=== PATIENT | female | born 1935 | race Caucasian/White ===

== ENCOUNTER 2017-06-14 15:55 | Inpatient (IN) | payer OTHER ==
[2017-06-14 18:06] LABS: ADD MAN DIFF? NO
[2017-06-14 18:09] LABS: WHITE BLOOD COUNT 6.6 10^3/ul (4.8-10.8)
[2017-06-14 18:09] LABS: BASOPHILS % 0.5 % (0.0-2.0); EOSINOPHILS # 0.1 10^3/ul (0.0-0.5); EOSINOPHILS % 1.5 % (0.0-7.0); HEMATOCRIT 31.9 % (37.0-47.0); HEMOGLOBIN 11.3 g/dl (12.0-16.0); LYMPHOCYTES # 1.3 10^3/ul (0.8-2.9); LYMPHOCYTES % 19.9 % (15.0-51.0); MEAN CORPUSCULAR HEMOGLOBIN 29.7 pg (29.0-33.0); MEAN CORPUSCULAR HGB CONC 35.4 g/dl (32.0-37.0); MEAN CORPUSCULAR VOLUME 83.7 fl (82.0-101.0); MEAN PLATELET VOLUME 9.4 fl (7.4-10.4); MONOCYTE # 0.6 10^3/ul (0.3-0.9); MONOCYTES % 9.7 % (0.0-11.0); NEUTROPHIL # 4.5 10^3/ul (1.6-7.5); NEUTROPHILS % 67.9 % (39.0-77.0); PLATELET COUNT 255 10^3/UL (140-415); RED BLOOD COUNT 3.81 10^6/ul (4.20-5.40); RED CELL DISTRIBUTION WIDTH 12.6 % (11.5-14.5)
[2017-06-14 18:35] LABS: ALANINE AMINOTRANSFERASE 37 IU/L (13-69); ALBUMIN 4.3 g/dl (3.3-4.9); ALBUMIN/GLOBULIN RATIO 1.53; ALKALINE PHOSPHATASE 67 IU/L (42-121); ANION GAP 16 (8-16); BILIRUBIN,INDIRECT 0.4 mg/dl (0-1.1); BILIRUBIN,TOTAL 0.4 mg/dl (0.2-1.3); BLOOD UREA NITROGEN 20 mg/dl (7-20); CALCIUM 8.4 mg/dl (8.4-10.2); CARBON DIOXIDE 24 mmol/L (21-31); CHLORIDE 87 mmol/L (97-110); CREATININE 1.23 mg/dl (0.44-1.00); GLUCOSE 111 mg/dl (70-220); SODIUM 123 mmol/L (135-144); TOTAL PROTEIN 7.1 g/dl (6.1-8.1)
[2017-06-14 18:36] LABS: ASPARTATE AMINO TRANSFERASE 40 IU/L (15-46)
[2017-06-14 19:05] LABS: ADD UMIC YES; UR ASCORBIC ACID 20 mg/dL (NEGATIVE); UR BACTERIA MANY /HPF (NONE SEEN); UR BILIRUBIN (Dip) NEGATIVE (NEGATIVE); UR BLOOD (Dip) 1+ mg/dL (NEGATIVE); UR CALCIUM OXALATE CRYSTAL MODERATE /HPF (NONE SEEN); UR CLARITY TURBID (CLEAR); UR COLOR AMBER (YELLOW); UR GLUCOSE (Dip) NEGATIVE (NEGATIVE); UR KETONES (Dip) NEGATIVE (NEGATIVE); UR LEUKOCYTE ESTERASE (Dip) 3+ Leu/ul (NEGATIVE); UR MUCUS FEW /HPF (NONE SEEN); UR NITRITE (Dip) NEGATIVE (NEGATIVE); UR NONSQUAMOUS EPITHELIAL CELL 3 /HPF (NONE SEEN); UR RBC 6 /HPF (0-5); UR SPECIFIC GRAVITY (Dip) 1.006 (1.003-1.030); UR SQUAMOUS EPITHELIAL CELL FEW /HPF (FEW); UR TOTAL PROTEIN (Dip) 1+ mg/dl (NEGATIVE); UR UROBILINOGEN (Dip) NEGATIVE (NEGATIVE); UR WBC > 182 /HPF (0-5)
[2017-06-14] MEDS: CEFTRIAXONE 1 GM/50 ML (PMX) 50 ML IVPB (19:20)
[2017-06-14] MEDS ORDERED: ONDANSETRON 4 MG INJ IV ×2 (20:00→23:30)
[2017-06-14] MEDS ORDERED: ACETAMINOPHEN 325 MG TAB PO (20:00)
[2017-06-14] MEDS ORDERED: ONDANSETRON 4 MG TAB PO (23:30)
[2017-06-14] MEDS ORDERED: BISACODYL (EC) 5 MG TAB PO (23:30)
[2017-06-14] MEDS ORDERED: DOCUSATE SODIUM 100 MG CAP PO (23:30)
[2017-06-14] MEDS ORDERED: NACL 0.9% 3 ML SYG IV (23:30)
[2017-06-14] MEDS ORDERED: ACETAMINOPHEN 650 MG SUPP PR (23:30)
[2017-06-14] MEDS: SOD CHLORIDE 0.9% 1,000 ML IV (23:57)
[2017-06-15] MEDS: CEFTRIAXONE 2 GM/50 ML (PMX) 50 ML IVPB (06:35)
[2017-06-15] MEDS: PANTOPRAZOLE 40 MG INJ IV (06:35)
[2017-06-15 06:46] LABS: ALANINE AMINOTRANSFERASE 37 IU/L (13-69); ALBUMIN/GLOBULIN RATIO 1.48; ALKALINE PHOSPHATASE 71 IU/L (42-121); ANION GAP 11 (8-16); ASPARTATE AMINO TRANSFERASE 29 IU/L (15-46); BILIRUBIN,INDIRECT 0.3 mg/dl (0-1.1); BILIRUBIN,TOTAL 0.3 mg/dl (0.2-1.3); BLOOD UREA NITROGEN 15 mg/dl (7-20); CALCIUM 8.8 mg/dl (8.4-10.2); CARBON DIOXIDE 30 mmol/L (21-31); CHLORIDE 96 mmol/L (97-110); CREATININE 1.18 mg/dl (0.44-1.00); GLUCOSE 87 mg/dl (70-220); POTASSIUM 3.3 mmol/L (3.5-5.1); SODIUM 134 mmol/L (135-144); TOTAL PROTEIN 6.7 g/dl (6.1-8.1)
[2017-06-15 07:37] LABS: SODIUM,URINE RANDOM 46 mmol/L (30-90)
[2017-06-15] MEDS: LISINOPRIL 5 MG TAB PO (08:29)
[2017-06-15] MEDS: ATENOLOL 50 MG TAB PO (08:29)
[2017-06-15] MEDS: ENOXAPARIN 40 MG/0.4 ML SYG SC (08:32)
[2017-06-15 10:50] LABS: OSMOLALITY 274 mOsm/kg (280-295)
[2017-06-15 11:02] LABS: OSMOLALITY,URINE 166 mOsm/kg (250-1200)
[2017-06-15] MEDS: MAGNESIUM HYDROXIDE 30ML CUP PO (15:02)
[2017-06-15] MEDS: SOD CHLORIDE 0.9% 1,000 ML IV (16:46)
[2017-06-15] MEDS: POTASSIUM CHLORIDE 50 ML IVPB ×3 (17:34→22:08)
[2017-06-16] MEDS: SOD CHLORIDE 0.9% 1,000 ML IV ×2 (03:51→11:06)
[2017-06-16] MEDS: PANTOPRAZOLE 40 MG INJ IV (06:14)
[2017-06-16] MEDS: CEFTRIAXONE 2 GM/50 ML (PMX) 50 ML IVPB (06:15)
[2017-06-16] MEDS: LISINOPRIL 5 MG TAB PO (08:31)
[2017-06-16] MEDS: ATENOLOL 50 MG TAB PO (08:33)
[2017-06-16] MEDS: ENOXAPARIN 40 MG/0.4 ML SYG SC (08:34)
[2017-06-16] MEDS: MEROPENEM 1 GM/50ML(PMX) 50 ML IVPB ×2 (13:10→23:09)
[2017-06-17] MEDS: SOD CHLORIDE 0.9% 1,000 ML IV (02:35)
[2017-06-17] MEDS: PANTOPRAZOLE 40 MG INJ IV (05:47)
[2017-06-17 06:25] LABS: ALANINE AMINOTRANSFERASE 31 IU/L (13-69); ALBUMIN 4.2 g/dl (3.3-4.9); ALKALINE PHOSPHATASE 77 IU/L (42-121); ANION GAP 14 (8-16); ASPARTATE AMINO TRANSFERASE 27 IU/L (15-46); BILIRUBIN,INDIRECT 0.2 mg/dl (0-1.1); BILIRUBIN,TOTAL 0.2 mg/dl (0.2-1.3); BLOOD UREA NITROGEN 7 mg/dl (7-20); CALCIUM 8.6 mg/dl (8.4-10.2); CARBON DIOXIDE 25 mmol/L (21-31); CHLORIDE 100 mmol/L (97-110); CREATININE 0.95 mg/dl (0.44-1.00); GLUCOSE 103 mg/dl (70-220); POTASSIUM 3.3 mmol/L (3.5-5.1); SODIUM 136 mmol/L (135-144)
[2017-06-17] MEDS: ATENOLOL 50 MG TAB PO (09:00)
[2017-06-17] MEDS: LISINOPRIL 5 MG TAB PO (09:00)
[2017-06-17] MEDS: ENOXAPARIN 40 MG/0.4 ML SYG SC (10:19)
[2017-06-17] MEDS ORDERED: HYDROCODONE/APAP (5/325) TAB NGT (10:30)
[2017-06-17] MEDS: traMADol 50 MG TAB NGT (11:00)
[2017-06-17] MEDS: POTASSIUM CHLORIDE (SR) 20 MEQ TAB PO (11:01)
[2017-06-17] MEDS: MEROPENEM 1 GM/50ML(PMX) 50 ML IVPB ×2 (11:30→23:29)
[2017-06-18] MEDS: PANTOPRAZOLE 40 MG INJ IV (05:16)
[2017-06-18 07:15] LABS: ALANINE AMINOTRANSFERASE 30 IU/L (13-69); ALBUMIN 3.9 g/dl (3.3-4.9); ALBUMIN/GLOBULIN RATIO 1.44; ALKALINE PHOSPHATASE 67 IU/L (42-121); ANION GAP 17 (8-16); ASPARTATE AMINO TRANSFERASE 25 IU/L (15-46); BILIRUBIN,INDIRECT 0.2 mg/dl (0-1.1); BILIRUBIN,TOTAL 0.2 mg/dl (0.2-1.3); BLOOD UREA NITROGEN 9 mg/dl (7-20); CALCIUM 8.6 mg/dl (8.4-10.2); CARBON DIOXIDE 26 mmol/L (21-31); CHLORIDE 98 mmol/L (97-110); CREATININE 0.98 mg/dl (0.44-1.00); GLUCOSE 99 mg/dl (70-220); POTASSIUM 3.3 mmol/L (3.5-5.1); SODIUM 138 mmol/L (135-144); TOTAL PROTEIN 6.6 g/dl (6.1-8.1)
[2017-06-18] MEDS: LISINOPRIL 5 MG TAB PO (08:46)
[2017-06-18] MEDS: ATENOLOL 50 MG TAB PO (08:46)
[2017-06-18] MEDS: LIDOCAINE 1% (MPF) 5 ML VIAL SC (11:50)
[2017-06-18] MEDS: SOD CHLORIDE 0.9% 100 ML (12:10)
[2017-06-18] MEDS: MEROPENEM 1 GM/50ML(PMX) 50 ML IVPB ×2 (13:04→23:29)
[2017-06-18] MEDS: POTASSIUM CHLORIDE (SR) 20 MEQ TAB PO (13:04)
[2017-06-19] MEDS: PANTOPRAZOLE 40 MG INJ IV (05:27)
[2017-06-19] MEDS: ACETAMINOPHEN 325 MG TAB PO (07:51)
[2017-06-19] MEDS: LISINOPRIL 5 MG TAB PO (08:34)
[2017-06-19] MEDS: ATENOLOL 50 MG TAB PO (08:34)
[2017-06-19] MEDS: MEROPENEM 1 GM/50ML(PMX) 50 ML IVPB ×2 (12:46→23:19)
[2017-06-19] MEDS ORDERED: ZOLPIDEM 5 MG TAB PO (22:30)
[2017-06-20] MEDS: PANTOPRAZOLE 40 MG INJ IV (06:00)
[2017-06-20] MEDS ORDERED: LISINOPRIL 5 MG TAB PO (09:00)
[2017-06-20] MEDS: LISINOPRIL 10 MG TAB PO (09:01)
[2017-06-20] MEDS: ATENOLOL 50 MG TAB PO (09:02)
[2017-06-20] MEDS: MEROPENEM 1 GM/50ML(PMX) 50 ML IVPB (11:08)
== END 2017-06-20 15:00 | disposition home health service (06) | DRG 683 ==
LOC: FTE 15:55 → MS1 19:54
PROC: 02HV33Z Insertion of Infusion Device into Superior Vena Cava, Percutaneous Approach (ICD-10-PCS; principal; 2017-06-18)
DX: N17.9 Acute kidney failure, unspecified (principal); N39.0 Urinary tract infection, site not specified; E87.1 Hypo-osmolality and hyponatremia; D64.9 Anemia, unspecified; I10 Essential (primary) hypertension; E66.9 Obesity, unspecified; Z68.31 Body mass index [BMI] 31.0-31.9, adult; B96.20 Unspecified Escherichia coli [E. coli] as the cause of diseases classified elsewhere; Z16.12 Extended spectrum beta lactamase (ESBL) resistance
CPT/HCPCS: 36415; 36569; 70450; 71045; 76775; 76937; 80053; 81001; 83930; 83935; 84300; 85025; 87086; 93005; 96374; 99285-25

== ENCOUNTER 2017-07-03 11:03 | Emergency (ER) | payer OTHER | END 2017-07-03 17:18 | disposition home or self-care (01) | LOC: E/R 11:03 | DX: Z45.2 Encounter for adjustment and management of vascular access device (principal); I10 Essential (primary) hypertension | CPT/HCPCS: 99282; Z7502 ==

== ENCOUNTER 2017-09-13 20:21 | Emergency (ER) | payer OTHER ==
[2017-09-13] MEDS: LORAZEPAM 0.5 MG TAB PO (21:31)
[2017-09-13 22:10] LABS: ADD UMIC YES; UR ASCORBIC ACID NEGATIVE (NEGATIVE); UR BILIRUBIN (Dip) NEGATIVE (NEGATIVE); UR BLOOD (Dip) NEGATIVE (NEGATIVE); UR CLARITY CLEAR (CLEAR); UR COLOR COLORLESS (YELLOW); UR GLUCOSE (Dip) NEGATIVE (NEGATIVE); UR KETONES (Dip) NEGATIVE (NEGATIVE); UR LEUKOCYTE ESTERASE (Dip) TRACE Leu/ul (NEGATIVE); UR NITRITE (Dip) NEGATIVE (NEGATIVE); UR RBC 1 /HPF (0-5); UR SPECIFIC GRAVITY (Dip) 1.003 (1.003-1.030); UR TOTAL PROTEIN (Dip) NEGATIVE (NEGATIVE); UR UROBILINOGEN (Dip) NEGATIVE (NEGATIVE); UR WBC 5 /HPF (0-5)
[2017-09-13 22:13] LABS: ADD MAN DIFF? NO
[2017-09-13 22:15] LABS: BASOPHILS % 0.8 % (0.0-2.0); EOSINOPHILS # 0.2 10^3/ul (0.0-0.5); HEMATOCRIT 33.3 % (37.0-47.0); LYMPHOCYTES # 1.2 10^3/ul (0.8-2.9); MEAN CORPUSCULAR HEMOGLOBIN 30.5 pg (29.0-33.0); MEAN CORPUSCULAR VOLUME 84.5 fl (82.0-101.0); MEAN PLATELET VOLUME 10.3 fl (7.4-10.4); MONOCYTE # 0.5 10^3/ul (0.3-0.9); MONOCYTES % 10.4 % (0.0-11.0); NEUTROPHIL # 3.1 10^3/ul (1.6-7.5); NEUTROPHILS % 62.4 % (39.0-77.0); PLATELET COUNT 245 10^3/UL (140-415); RED BLOOD COUNT 3.94 10^6/ul (4.20-5.40)
[2017-09-13 22:32] LABS: ANION GAP 15 (8-16); BLOOD UREA NITROGEN 12 mg/dl (7-20); CARBON DIOXIDE 34 mmol/L (21-31); CHLORIDE 88 mmol/L (97-110); GLUCOSE 105 mg/dl (70-220); POTASSIUM 3.1 mmol/L (3.5-5.1); SODIUM 134 mmol/L (135-144)
[2017-09-13 22:45] LABS: TROPONIN-I < 0.012 ng/ml (0.00-0.12)
== END 2017-09-13 23:05 | disposition home or self-care (01) ==
LOC: E/R 20:21
DX: I10 Essential (primary) hypertension (principal); N30.00 Acute cystitis without hematuria; E66.9 Obesity, unspecified; Z68.30 Body mass index [BMI] 30.0-30.9, adult
CPT/HCPCS: 36415; 80048; 81001; 82962; 84484; 85025; 99284-25

== ENCOUNTER 2017-09-14 21:03 | Emergency (ER) | payer SELFPAY, OTHER | END 2017-09-14 22:45 | disposition left against medical advice (07) | LOC: E/R 22:45 | DX: Z53.21 Procedure and treatment not carried out due to patient leaving prior to being seen by health care provider (principal) ==

== ENCOUNTER 2017-09-16 18:18 | Inpatient (IN) | payer OTHER, MEDICAID ==
[2017-09-16] MEDS ORDERED: LORAZEPAM 2 MG INJ IV (21:00)
[2017-09-16] MEDS: METOCLOPRAMIDE 10 MG INJ IV (21:49)
[2017-09-16] MEDS: SOD CHLORIDE 0.9% 1,000 ML IV (21:49)
[2017-09-16 22:03] LABS: ADD MAN DIFF? NO
[2017-09-16 22:10] LABS: BASOPHILS % 0.7 % (0.0-2.0); EOSINOPHILS # 0.1 10^3/ul (0.0-0.5); HEMATOCRIT 32.3 % (37.0-47.0); HEMOGLOBIN 11.8 g/dl (12.0-16.0); LYMPHOCYTES # 1.4 10^3/ul (0.8-2.9); LYMPHOCYTES % 24.5 % (15.0-51.0); MEAN CORPUSCULAR HEMOGLOBIN 29.8 pg (29.0-33.0); MEAN CORPUSCULAR HGB CONC 36.5 g/dl (32.0-37.0); MEAN CORPUSCULAR VOLUME 81.6 fl (82.0-101.0); MONOCYTE # 0.5 10^3/ul (0.3-0.9); MONOCYTES % 9.8 % (0.0-11.0); NEUTROPHIL # 3.5 10^3/ul (1.6-7.5); NEUTROPHILS % 62.5 % (39.0-77.0); PLATELET COUNT 250 10^3/UL (140-415); RED BLOOD COUNT 3.96 10^6/ul (4.20-5.40); RED CELL DISTRIBUTION WIDTH 12.7 % (11.5-14.5)
[2017-09-16 22:10] LABS: WHITE BLOOD COUNT 5.5 10^3/ul (4.8-10.8)
[2017-09-16 22:18] LABS: ADD UMIC NO; UR ASCORBIC ACID NEGATIVE (NEGATIVE); UR BILIRUBIN (Dip) NEGATIVE (NEGATIVE); UR BLOOD (Dip) NEGATIVE (NEGATIVE); UR CLARITY CLEAR (CLEAR); UR COLOR COLORLESS (YELLOW); UR GLUCOSE (Dip) NEGATIVE (NEGATIVE); UR KETONES (Dip) NEGATIVE (NEGATIVE); UR LEUKOCYTE ESTERASE (Dip) NEGATIVE Leu/ul (NEGATIVE); UR NITRITE (Dip) NEGATIVE (NEGATIVE); UR SPECIFIC GRAVITY (Dip) 1.004 (1.003-1.030); UR TOTAL PROTEIN (Dip) NEGATIVE (NEGATIVE); UR UROBILINOGEN (Dip) NEGATIVE (NEGATIVE)
[2017-09-16] MEDS: LABETALOL HCL 20MG INJ IV (22:20)
[2017-09-16 22:26] LABS: LACTIC ACID 1.4 mmol/L (0.5-2.0)
[2017-09-16 22:29] LABS: ALANINE AMINOTRANSFERASE 29 IU/L (13-69); ALBUMIN 4.5 g/dl (3.3-4.9); ALKALINE PHOSPHATASE 87 IU/L (42-121); ANION GAP 15 (8-16); ASPARTATE AMINO TRANSFERASE 30 IU/L (15-46); BILIRUBIN,INDIRECT 0.3 mg/dl (0-1.1); BILIRUBIN,TOTAL 0.3 mg/dl (0.2-1.3); BLOOD UREA NITROGEN 13 mg/dl (7-20); CALCIUM 9.1 mg/dl (8.4-10.2); CARBON DIOXIDE 29 mmol/L (21-31); CHLORIDE 83 mmol/L (97-110); CREATININE 0.87 mg/dl (0.44-1.00); GLUCOSE 104 mg/dl (70-220); LIPASE 138 U/L (23-300); POTASSIUM 3.4 mmol/L (3.5-5.1); SODIUM 124 mmol/L (135-144); TOTAL PROTEIN 7.3 g/dl (6.1-8.1)
[2017-09-16 22:41] LABS: TROPONIN-I < 0.012 ng/ml (0.00-0.12)
[2017-09-16] MEDS: DIPHENHYDRAMINE 50 MG INJ IV (23:30)
[2017-09-17] MEDS ORDERED: NS + KCL 20 MEQ 1,000 ML IV (17:07)
[2017-09-17] MEDS ORDERED: BISACODYL (EC) 5 MG TAB PO (17:30)
[2017-09-17] MEDS ORDERED: NACL 0.9% 3 ML SYG IV (17:30)
[2017-09-17] MEDS ORDERED: ONDANSETRON 4 MG INJ IV (17:30)
[2017-09-17] MEDS ORDERED: DOCUSATE SODIUM 100 MG CAP PO (17:30)
[2017-09-17 18:01] LABS: CREATINE KINASE 117 IU/L (23-200)
[2017-09-17 18:13] LABS: CK INDEX 0.7; CK-MB 0.82 ng/ml (0.0-2.4)
[2017-09-17 18:17] LABS: TROPONIN-I < 0.012 ng/ml (0.00-0.12)
[2017-09-17] MEDS: POTASSIUM CHLORIDE IV (19:30)
[2017-09-17] MEDS: SOD CHLORIDE 0.9% IV (19:30)
[2017-09-17 19:46] LABS: OSMOLALITY 274 mOsm/kg (280-295)
[2017-09-17 23:19] LABS: CREATINE KINASE 99 IU/L (23-200)
[2017-09-17 23:32] LABS: CK INDEX 0.7; CK-MB 0.68 ng/ml (0.0-2.4)
[2017-09-17 23:33] LABS: TROPONIN-I < 0.012 ng/ml (0.00-0.12)
[2017-09-18] MEDS: ACETAMINOPHEN 325 MG TAB PO (00:41)
[2017-09-18 02:50] LABS: ADD UMIC YES; UR ASCORBIC ACID NEGATIVE (NEGATIVE); UR BILIRUBIN (Dip) NEGATIVE (NEGATIVE); UR BLOOD (Dip) NEGATIVE (NEGATIVE); UR CLARITY CLEAR (CLEAR); UR COLOR YELLOW (YELLOW); UR GLUCOSE (Dip) NEGATIVE (NEGATIVE); UR KETONES (Dip) NEGATIVE (NEGATIVE); UR LEUKOCYTE ESTERASE (Dip) 3+ Leu/ul (NEGATIVE); UR NITRITE (Dip) NEGATIVE (NEGATIVE); UR RBC 1 /HPF (0-5); UR TOTAL PROTEIN (Dip) NEGATIVE (NEGATIVE); UR UROBILINOGEN (Dip) NEGATIVE (NEGATIVE); UR WBC 13 /HPF (0-5)
[2017-09-18 04:25] LABS: SODIUM,URINE RANDOM 54 mmol/L (30-90)
[2017-09-18 05:56] LABS: OSMOLALITY,URINE 321 mOsm/kg (250-1200)
[2017-09-18] MEDS: PANTOPRAZOLE (EC) 40 MG TAB PO (06:23)
[2017-09-18] MEDS: ASPIRIN 325 MG TAB PO (08:48)
[2017-09-18] MEDS: ATENOLOL 25 MG TAB PO (08:48)
[2017-09-18] MEDS: LISINOPRIL 5 MG TAB PO (08:48)
[2017-09-18] MEDS: ENOXAPARIN 40 MG/0.4 ML SYG SC (08:52)
[2017-09-18 09:07] LABS: CHOLESTEROL 226 mg/dl (100-200)
[2017-09-18 09:07] LABS: CHOL/HDL RATIO 4.3 RATIO; HDL CHOLESTEROL 52 mg/dl (33-92); LDL CHOLESTEROL,CALCULATED 123 mg/dl; TRIGLYCERIDES 256 mg/dl (0-149)
[2017-09-18 09:25] LABS: FREE THYROXINE INDEX (Calc) 2.61 ug/ml (0.65-3.89); T3 UPTAKE 36.7 % (23.5-40.5); T4 (THYROXINE) 7.1 ug/dl (5.5-11.0)
[2017-09-18 10:09] LABS: ALANINE AMINOTRANSFERASE 28 IU/L (13-69); ALBUMIN 3.8 g/dl (3.3-4.9); ALBUMIN/GLOBULIN RATIO 1.26; ALKALINE PHOSPHATASE 74 IU/L (42-121); ANION GAP 14 (8-16); ASPARTATE AMINO TRANSFERASE 28 IU/L (15-46); BILIRUBIN,INDIRECT 0.4 mg/dl (0-1.1); BILIRUBIN,TOTAL 0.4 mg/dl (0.2-1.3); BLOOD UREA NITROGEN 13 mg/dl (7-20); CALCIUM 8.8 mg/dl (8.4-10.2); CARBON DIOXIDE 27 mmol/L (21-31); CHLORIDE 96 mmol/L (97-110); CREATININE 1.07 mg/dl (0.44-1.00); GLUCOSE 93 mg/dl (70-220); POTASSIUM 3.1 mmol/L (3.5-5.1); SODIUM 134 mmol/L (135-144); TOTAL PROTEIN 6.8 g/dl (6.1-8.1)
[2017-09-18] MEDS: POTASSIUM CHLORIDE (SR) 20 MEQ TAB PO (11:44)
[2017-09-18] MEDS ORDERED: traMADol 50 MG TAB PO (15:30)
[2017-09-19] MEDS: PANTOPRAZOLE (EC) 40 MG TAB PO (06:20)
[2017-09-19] MEDS: ATENOLOL 25 MG TAB PO (09:00)
[2017-09-19] MEDS: ASPIRIN 325 MG TAB PO (10:01)
[2017-09-19] MEDS: ENOXAPARIN 40 MG/0.4 ML SYG SC (10:01)
[2017-09-19] MEDS: LISINOPRIL 5 MG TAB PO (10:02)
[2017-09-19 13:39] LABS: ANION GAP 15 (8-16); BLOOD UREA NITROGEN 16 mg/dl (7-20); CALCIUM 9.1 mg/dl (8.4-10.2); CARBON DIOXIDE 25 mmol/L (21-31); CHLORIDE 93 mmol/L (97-110); CREATININE 1.02 mg/dl (0.44-1.00); GLUCOSE 101 mg/dl (70-220); POTASSIUM 3.4 mmol/L (3.5-5.1); SODIUM 130 mmol/L (135-144)
[2017-09-19] MEDS: ACETAMINOPHEN 325 MG TAB PO (14:00)
[2017-09-20] MEDS: PANTOPRAZOLE (EC) 40 MG TAB PO (05:55)
[2017-09-20 07:38] LABS: ANION GAP 17 (8-16); BLOOD UREA NITROGEN 18 mg/dl (7-20); CALCIUM 9.2 mg/dl (8.4-10.2); CARBON DIOXIDE 26 mmol/L (21-31); CHLORIDE 94 mmol/L (97-110); CREATININE 1.04 mg/dl (0.44-1.00); GLUCOSE 95 mg/dl (70-220); POTASSIUM 3.5 mmol/L (3.5-5.1); SODIUM 133 mmol/L (135-144)
[2017-09-20] MEDS: ASPIRIN 325 MG TAB PO (08:49)
[2017-09-20] MEDS: ATENOLOL 25 MG TAB PO (08:49)
[2017-09-20] MEDS: LISINOPRIL 5 MG TAB PO (08:49)
[2017-09-20] MEDS: ENOXAPARIN 40 MG/0.4 ML SYG SC (08:50)
== END 2017-09-20 16:30 | disposition home or self-care (01) | DRG 305 ==
LOC: E/R 18:18 → PP2 09-18 21:09 → MS4 09-17 01:02
DX: I16.0 Hypertensive urgency (principal); E87.1 Hypo-osmolality and hyponatremia; E87.6 Hypokalemia; D64.9 Anemia, unspecified; I10 Essential (primary) hypertension
CPT/HCPCS: 36415; 70450; 70551; 71045; 74019; 80048; 80053; 80061; 81001; 81003; 82550; 82553; 83605; 83690; 83930; 83935; 84300; 84436; 84443; 84479; 84484; 85025; 85651; 93005; 93306; 93880; 96374; 96375; 97164; 99291-25